=== PATIENT | male | born 1940 | race Caucasian/White ===

== ENCOUNTER 2016-10-09 15:42 | Emergency (ER) | payer MEDICARE ==
[2016-10-09 16:11] VITALS: BP 133/60
--- NOTE | 2016-10-09 16:17 | ED Physician Documentation ---
General Adult - HISTORIAN Historian: patient - HPI Stated Complaint: rash Chief Complaint: General Adult Onset: days ago (2) Timing: still present Severity: mild Further Comments: yes (Pt is a 76 yo male with rash on thighs and torso. Pt is concerned about possibility of strep. Pt had been on Steroids for one month which he d/c'd about 1 week ago.) - ROS CONST: no problems EYES/ENT: none CVS/RESP: none GI/: none MS/SKIN/LYMPH: rash - PAST HX Past History: other (CAD, OH w stents, DM, GERD, HLD, HTN ) Surgeries/Procedures: other (ortho, tonsillectomy) Allergies/Adverse Reactions: Allergies Allergy/AdvReac Type Severity Reaction Status Date / Time celecoxib [From Celebrex] Allergy Intermediate Rash Verified 10/09/16 15:57 lidocaine HCl Allergy Unknown Verified 10/09/16 15:57 [From Xylocaine] Penicillins Allergy Rash Verified 10/09/16 15:57 Home Medications: Ambulatory Orders Medication Instructions Recorded Aspir 81 81 mg PO DAILY u2 02/20/13 Cetirizine HCl [Zyrtec] 10 mg PO DAILY av 02/25/15 Meloxicam 7.5 mg PO DAILY u2 02/25/15 Metoprolol Succinate [Toprol Xl] 25 mg PO BID u2 02/25/15 Omeprazole [Prilosec] 40 mg PO DAILY 04/29/15 Azithromycin [Zithromax] 250 mg PO DAILY #5 tablet 10/09/16 - SOCIAL HX Smoking History: quit greater than 1 year - FAMILY HX Family History: No - VITAL SIGNS Vital Signs: Vital Signs Temp Pulse Resp BP Pulse Ox 99.8 F H 94 H 18 133/60 95 10/09/16 16:00 10/09/16 16:00 10/09/16 16:00 10/09/16 16:00 10/09/16 16:00 - REVIEWED ASSESSMENTS Nursing Assessment Reviewed: Yes Vitals Reviewed: Yes Progress - Progress Progress: Rapid strep - pos Azithromycin 500 mg po in ER. Rx Azithromycin 250 mg po qd x 5 days. ED Results Lab/Radiology - Orders Orders: ED Orders Category Date Time Status Rapid Strep [GRP A STREP SCREEN] Stat Lab 10/09/16 Ordered General Adult Physical Exam - PHYSICAL EXAM GENERAL APPEARANCE: no distress EENT: ENT inspection normal NECK: normal inspection, supple RESPIRATORY: no resp distress, chest non-tender, breath sounds normal CVS: reg rate & rhythm, heart sounds normal ABDOMEN: soft BACK: normal inspection, no CVA tenderness SKIN: other (rash, numerous small 1 mm erythematous macules on thighs b/l) EXTREMITIES: non-tender, normal range of motion, no edema NEURO: oriented X3, motor nml, sensation nml Discharge Clincal Impression: Rash, Pos strep test Prescriptions: Azithromycin [Zithromax] 250 mg PO DAILY #5 tablet Referrals: Tia Singer, PRN [Primary Care Provider] - 2 Days Home Medications: Ambulatory Orders Aspir 81 81 mg PO DAILY u2 02/20/13 Cetirizine HCl [Zyrtec] 10 mg PO DAILY av 02/25/15 Meloxicam 7.5 mg PO DAILY u2 02/25/15 Metoprolol Succinate [Toprol Xl] 25 mg PO BID u2 02/25/15 Omeprazole [Prilosec] 40 mg PO DAILY 04/29/15 Azithromycin [Zithromax] 250 mg PO DAILY #5 tablet 10/09/16 Condition: Good Disposition: 01 HOME, SELF-CARE Decision to Admit: NO Decision Time: 16:23
[2016-10-09] MEDS: AZITHROMYCIN 250 MG TABLET PO ONE (16:20)
== END 2016-10-09 16:34 | disposition home or self-care (01) ==
LOC: ED 15:42
DX: R21 Rash and other nonspecific skin eruption (principal); J02.0 Streptococcal pharyngitis
CPT/HCPCS: 87880; 99283

== ENCOUNTER 2016-11-20 11:11 | Outpatient (CLI) | payer MEDICARE ==
--- NOTE | 2016-11-20 18:24 | Diagnostic Imaging Report ---
RYAN PETERSON (FOREST) - OP~ [facility] [address] [facility].[address] [address] ~ ~ ~ ~ Report Submission Date: Nov 20, 2016 11:46:38 AM CDT Patient ~ Study Name: TERRY SANCHEZ ~ Date: Nov 20, 2016 11:23:27 AM CDT ~ Modality Type: CR Gender: M ~ Description: UPPER EXTREMITY : 41 ~ Institution: [facility] Physician: RYAN PETERSON) - OP ~ ~ ~ ~ Left thumb, 3 views. History: 76/M PATIENT STATES THE SKIN ON HIS LEFT THUMB SPLIT OPEN X 1 DAY AGO ON THE LATERAL ASPECT OF THE INTERPHALANGEAL JOINT. NO PAIN OR DISCOMFORT; STATES THAT THE THUMB WAS SEVERED COMPLETELY AT THE INTERPHALANGEAL JOINT X 10 YEARS AGO AND SURGICALLY REATTACHED. Findings: There is mild irregularity oblique lucency at the lateral base of the 1st distal phalanx with sclerotic changes in the adjacent distal phalynx and distal portion of the proximal phalanx, likely representing sequela of previous injury. No soft tissue radiopaque foreign body is identified. Impression: 1. Irregularity lucency at the base of the 1st distal phalanx, this is somewhat atypical for acute fracture, ~and with the adjacent sclerotic changes in the base of the distal phalanx and distal portion of the proximal phalanx and history of prior injury, this likely represents sequela of old injury. ~ Electronically signed on Nov 20, 2016 11:46:38 AM CDT by: Edis BARR
== END 2016-11-20 11:12 ==
LOC: RAD 11:11
PROVIDERS: ATTEND Nurse Practitioner Family
DX: M79.642 Pain in left hand (principal)
CPT/HCPCS: 73140

== ENCOUNTER 2018-03-20 07:42 | Outpatient (CLI) | payer MEDICARE | END 2018-03-20 07:44 | LOC: LAB 07:42 | PROVIDERS: ATTEND Nurse Practitioner Family | DX: E03.9 Hypothyroidism, unspecified (principal) | CPT/HCPCS: 36415; 84439; 84443 ==

== ENCOUNTER 2019-04-30 11:05 | Outpatient (CLI) | payer MEDICARE ==
[2019-04-30 11:35] LABS: BASOPHILS % 0.5 % (0.0-1.5)
[2019-04-30 11:54] LABS: eGFR (Non-African) > 60
== END 2019-04-30 11:07 ==
LOC: LAB 11:05
PROVIDERS: ATTEND Nurse Practitioner Family
DX: R18.8 Other ascites (principal)
CPT/HCPCS: 36415; 80053; 85025; 85651; 86140